=== PATIENT | female | born 1990 | race Caucasian/White ===

== ENCOUNTER 2017-09-05 18:51 | Emergency (ER) | payer BC, MEDICAID ==
[~2017-09-05] VITALS: Ht 167.6 cm; Wt 81.6 kg
[2017-09-05 19:05] VITALS: BP 118/92
--- NOTE | 2017-09-05 19:30 | NUR ---
27Y/F PT C/O ABD PAIN TO UPPER ABD SHARP, 9/10. ABD IS ROUND, SOFT, NON TENDER, ACTIVE BS X4. PT LAYING IN BED, COMFORT NEEDS MET, SIDE RAIL UP X1.
[2017-09-05] MEDS ORDERED: NITROGLYCERIN 2% 1 GM PKT TP ONE (19:31)
[2017-09-05] MEDS ORDERED: NACL 0.9% 1,000 ML IV SCH (20:08)
[2017-09-05] MEDS ORDERED: MORPHINE SULFATE 4 MG/ML SYR IVP ONE ×2 (20:10→23:05)
[2017-09-05] MEDS ORDERED: KETOROLAC 30 MG/ML VIAL IVP ONE (20:10)
[2017-09-05] MEDS ORDERED: ONDANSETRON 4 MG/2 ML VIAL IVP ONE (20:10)
[2017-09-05 21:08] LABS: BASOPHILS # (AUTO) 0.1 K/uL (0.00-0.22); BASOPHILS % (AUTO) 1.2 % (0.0-2.0); EOSINOPHILS # (AUTO) 0.4 K/uL (0-0.4); EOSINOPHILS % (AUTO) 5.1 % (0.0-4.0); HEMATOCRIT 40.8 % (36-48); HEMOGLOBIN 13.9 g/dL (12.0-16.0); LYMPHOCYTES # (AUTO) 2.6 K/uL (2.5-16.5); LYMPHOCYTES % (AUTO) 34.3 % (20.5-51.1); MEAN CORPUSCULAR HEMOGLOBIN 30 pg (27-31); MEAN CORPUSCULAR HGB CONC 34 g/dL (33-37); MEAN CORPUSCULAR VOLUME 87.3 fL (80-94); MONOCYTES # (AUTO) 0.5 K/uL (0.8-1.0); MONOCYTES % (AUTO) 6.4 % (1.7-9.3); NEUTROPHILS # (AUTO) 4.1 K/uL (1.8-7.7); PLATELET COUNT (AUTO) 341 K/uL (140-450); RED BLOOD CELL COUNT(AUTO) 4.67 MIL/uL (4.20-5.40); RED CELL DISTRIBUTION WIDTH 13.7 % (11.6-13.7); WHITE BLOOD COUNT (AUTO) 7.7 K/uL (4.8-10.8)
[2017-09-05 21:18] LABS: ANION GAP 8.7 (8-16); CARBON DIOXIDE 28.9 mmol/L (21-32); CREATININE 0.6 mg/dL (0.6-1.3); POTASSIUM 3.6 mmol/L (3.5-5.1)
[2017-09-05 21:23] LABS: ALBUMIN 3.9 g/dL (3.4-5.0); TOTAL BILIRUBIN 0.3 mg/dL (0.0-1.0)
[2017-09-05 21:47] LABS: APPEARANCE,URINE CLEAR (CLEAR); BILIRUBIN,URINE NEGATIVE (NEGATIVE); BLOOD, URINE NEGATIVE (NEGATIVE); COLOR,URINE YELLOW (YELLOW); LEUKOCYTE ESTERASE ,URINE NEGATIVE (NEGATIVE); NITRITE, URINE NEGATIVE (NEGATIVE); PH,URINE 5.5 (5.0-9.0); UGLUCOSE NEGATIVE (NEGATIVE)
--- NOTE | 2017-09-05 23:00 | NUR ---
PT LAYING IN BED, NO NEW NEEDS AT THIS TIME.
--- NOTE | 2017-09-06 01:00 | NUR ---
NOTIFIED OF PT TEST RESULTS AWATING DISPOSITION.
[2017-09-06 02:09] VITALS: BP 115/90
--- NOTE | 2017-09-06 02:10 | NUR ---
Patient discharged with v/s stable. Written and verbal after care instructions given and explained. Patient alert, oriented and verbalized understanding of instructions. Ambulatory with steady gait. All questions addressed prior to discharge. ID band removed. Patient advised to follow up with PMD. Rx of SHALOM COSTA given. Patient educated on indication of medication including possible reaction and side effects. Opportunity to ask questions provided and answered.
== END 2017-09-06 02:10 | disposition home or self-care (01) ==
LOC: MED 18:51
DX: I88.0 Nonspecific mesenteric lymphadenitis (principal); Z72.4 Inappropriate diet and eating habits
CPT/HCPCS: 36415; 74176; 76705; 80053; 81003; 81025; 83690; 84703; 85025; 96360; 96361; 99285; J1885; J2270; J2405; J7030; Q0092